=== PATIENT | male | born 1985 | race Caucasian/White ===

== ENCOUNTER 2020-05-12 14:00 | Emergency (ER) | payer OTHER ==
[~2020-05-12] VITALS: Ht 175.3 cm; Wt 81.8 kg
[2020-05-12 15:25] LABS: BASOPHILS % (AUTO) 0.6 % (0.0-2.0); EOSINOPHILS % (AUTO) 1.2 % (1.0-6.0); HEMATOCRIT 40.7 % (41-53); HEMOGLOBIN 13.8 g/dL (13.5-17.5); LYMPHOCYTES # (AUTO) 1.2 K/uL (1.0-4.8); LYMPHOCYTES % (AUTO) 18.8 % (22.0-44.0); MEAN CORPUSCULAR HGB CONC 33.9 G/dL (31.0-37.0); MEAN CORPUSCULAR VOLUME 85 fL (80-100); MONOCYTES # (AUTO) 0.5 K/uL (0.1-1.0); MONOCYTES % (AUTO) 7.7 % (2.0-9.0); NEUTROPHILS # (AUTO) 4.8 K/uL (1.8-7.7); NEUTROPHILS % (AUTO) 71.7 % (40.0-70.0); PLATELET COUNT (AUTO) 334 K/uL (150-450); RED BLOOD CELL COUNT(AUTO) 4.77 MIL/uL (4.50-5.90)
[2020-05-12 15:37] LABS: ANION GAP 9 mmol/L (8-16); CARBON DIOXIDE 27 mmol/L (22-29); CHLORIDE 105 mmol/L (98-107); CREATININE 0.81 mg/dL (0.60-1.30); GLOMERULAR FILTR. RATE CALC > 60 mL/min (>60); GLUCOSE,RANDOM 86 mg/dL (70-110); POTASSIUM 3.9 mmol/L (3.5-5.1); SODIUM SERUM 141 mmol/L (136-145); UREA NITROGEN, BLOOD 12 mg/dL (7-18)
[2020-05-12 15:44] LABS: LACTIC ACID 1.4 mmol/L (0.4-2.0)
[2020-05-12 16:04] LABS: ALANINE AMINOTRANSFERASE 21 U/L (12-78); ALBUMIN 3.5 g/dL (3.4-5.0); ALKALINE PHOSPHATASE 56 U/L (46-116); ASPARTATE AMINOTRANSFERASE 10 U/L (15-37); BILIRUBIN,TOTAL 0.3 mg/dL (0.1-1.0); CREATINE KINASE, TOTAL ONLY 81 U/L (39-308); TOTAL PROTEIN, SERUM 6.8 g/dL (6.4-8.2)
[2020-05-12 17:35] VITALS: BP 122/81
== END 2020-05-12 18:14 | disposition home or self-care (01) ==
LOC: EMS 14:03
DX: R56.9 Unspecified convulsions (principal)
CPT/HCPCS: 36415; 70450; 80053; 82550; 82962; 83605; 85025; 99284; G0480

== ENCOUNTER 2024-03-31 02:30 | Inpatient (IN) | payer OTHER ==
[~2024-03-31] VITALS: Ht 179.1 cm; Wt 75.0 kg
[2024-03-31] MEDS: SODIUM CHLORIDE 0.9% 1,000 ML IV ONE (04:24)
[2024-03-31] MEDS: ChlordiazePOXIDE HCL 10 MG CAPSULE PO ONE (04:24)
[2024-03-31 04:36] LABS: BASOPHILS % (AUTO) 0.7 % (0.0-2.0); EOSINOPHILS % (AUTO) 1.4 % (1.0-6.0); HEMATOCRIT 40.3 % (41-53); HEMOGLOBIN 13.4 g/dL (13.5-17.5); LYMPHOCYTES # (AUTO) 1.4 K/uL (1.0-4.8); LYMPHOCYTES % (AUTO) 21.7 % (22.0-44.0); MEAN CORPUSCULAR HEMOGLOBIN 28.4 pg (26.0-34.0); MEAN CORPUSCULAR HGB CONC 33.3 G/dL (31.0-37.0); MEAN CORPUSCULAR VOLUME 85 fL (80-100); MONOCYTES # (AUTO) 0.8 K/uL (0.1-1.0); MONOCYTES % (AUTO) 11.9 % (2.0-9.0); NEUTROPHILS # (AUTO) 4.2 K/uL (1.8-7.7); NEUTROPHILS % (AUTO) 64.3 % (40.0-70.0); PLATELET COUNT (AUTO) 402 K/uL (150-450); RED BLOOD CELL COUNT(AUTO) 4.73 MIL/uL (4.50-5.90); RED CELL DISTRIBUTION WIDTH 14.2 % (11.5-14.5); WHITE BLOOD COUNT (AUTO) 6.5 K/uL (4.5-11.0)
[2024-03-31 04:44] LABS: ANION GAP 6 mmol/L (8-16); CALCIUM, TOTAL 8.8 mg/dL (8.8-10.5); CARBON DIOXIDE 29 mmol/L (22-29); CHLORIDE 106 mmol/L (98-107); CREATININE 1.07 mg/dL (0.60-1.30); GLOMERULAR FILTR. RATE CALC > 60 mL/min (>60); GLUCOSE,RANDOM 110 mg/dL (70-110); POTASSIUM 4.3 mmol/L (3.5-5.1); SODIUM SERUM 141 mmol/L (136-145); UREA NITROGEN, BLOOD 16 mg/dL (7-18)
[2024-03-31 04:58] LABS: ALCOHOL, BLOOD (SERUM) < 3 mg/dL (0-10)
[2024-03-31 08:44] LABS: APPEARANCE,URINE CLEAR (CLEAR); BILIRUBIN,URINE NEGATIVE (NEGATIVE); COLOR,URINE LIGHT YELLOW (YELLOW); GLUCOSE, URINE (UA) NEGATIVE (NEGATIVE); KETONES,URINE NEGATIVE (NEGATIVE); LEUKOCYTE ESTERASE ,URINE NEGATIVE (NEGATIVE); NITRATE,URINE NEGATIVE (NEGATIVE); OCCULT BLOOD,URINE NEGATIVE (NEGATIVE); PROTEIN,URINE NEGATIVE (NEGATIVE); SPECIFIC GRAVITIY, URINE 1.021 (1.003-1.030); UROBILINOGEN,URINE <=1.0 mg/dL (<=1.0)
[2024-03-31 08:51] LABS: ALCOHOL, URINE DRUG SCREEN NEGATIVE (NEGATIVE); AMPHET/METH SCREEN,URINE POSITIVE (NEGATIVE); BARBITURATE SCREEN, URINE NEGATIVE (NEGATIVE); BENZODIAZEPINES SCREEN,URINE NEGATIVE (NEGATIVE); CANNABINOID SCREEN,URINE NEGATIVE (NEGATIVE); COCAINE SCREEN,URINE NEGATIVE (NEGATIVE); METHADONE SCREEN, URINE NEGATIVE (NEGATIVE); OPIATE SCREEN,URINE NEGATIVE (NEGATIVE); PHENCYCLIDINE SCREEN,URINE NEGATIVE (NEGATIVE)
[2024-03-31 10:38] VITALS: BP 111/66; PULSE 89; RESP 18; TEMP 98; O2SAT 100
[2024-03-31] MEDS: MAGNESIUM SULFATE 2 GM, MVI, ADULT NO.1 WITH VIT K 10 ML, THIAMINE 100 MG, FOLIC ACID 1... IV ONE (14:25)
[2024-03-31 15:29] VITALS: BP 121/70; PULSE 83; RESP 18; TEMP 98; O2SAT 96
[2024-03-31 19:32] VITALS: BP 123/71; PULSE 94; RESP 18; TEMP 98.2; O2SAT 99
[2024-04-01 04:45] VITALS: BP 119/71; PULSE 84; RESP 18; TEMP 97.7; O2SAT 100
[2024-04-01 07:59] VITALS: BP 102/82; PULSE 116; RESP 18; TEMP 98.3; O2SAT 100
[2024-04-01] MEDS: ChlordiazePOXIDE HCL 10 MG CAPSULE PO PRN (08:35)
[2024-04-01 16:59] VITALS: BP 97/57; PULSE 90; RESP 18; TEMP 98.3; O2SAT 98
== END 2024-04-01 22:30 | disposition left against medical advice (07) | DRG 894 ==
LOC: EMS 02:32 → EDH 09:27 → 6S 10:02
PROVIDERS: ADMIT Internal Medicine; ATTEND Internal Medicine
DX: F10.139 Alcohol abuse with withdrawal, unspecified (principal); F15.10 Other stimulant abuse, uncomplicated; Z53.21 Procedure and treatment not carried out due to patient leaving prior to being seen by health care provider
CPT/HCPCS: 80048; 80307; 81003; 85025; 96360; 99285; G0480; J3411; J3475; J3490; J7030; 36415-L1; 36415-TC

== ENCOUNTER 2024-04-02 00:34 | Inpatient (IN) | payer OTHER ==
[2024-04-02] MEDS: LORazepam 2 MG TABLET PO ONE (02:36)
[2024-04-02 02:40] LABS: HEMOGLOBIN 14.1 g/dL (13.5-17.5)
[2024-04-02 02:44] LABS: BASOPHILS % (AUTO) 1.1 % (0.0-2.0); EOSINOPHILS % (AUTO) 1.2 % (1.0-6.0); LYMPHOCYTES % (AUTO) 27.9 % (22.0-44.0); MEAN CORPUSCULAR HEMOGLOBIN 28.5 pg (26.0-34.0); MEAN CORPUSCULAR HGB CONC 32.9 G/dL (31.0-37.0); MEAN CORPUSCULAR VOLUME 87 fL (80-100); MONOCYTES # (AUTO) 0.9 K/uL (0.1-1.0); NEUTROPHILS # (AUTO) 4.2 K/uL (1.8-7.7); NEUTROPHILS % (AUTO) 57.8 % (40.0-70.0); PLATELET COUNT (AUTO) 405 K/uL (150-450); RED BLOOD CELL COUNT(AUTO) 4.97 MIL/uL (4.50-5.90); RED CELL DISTRIBUTION WIDTH 13.9 % (11.5-14.5); WHITE BLOOD COUNT (AUTO) 7.2 K/uL (4.5-11.0)
[2024-04-02 02:51] LABS: ANION GAP 6 mmol/L (8-16); CALCIUM, TOTAL 9.4 mg/dL (8.8-10.5); CARBON DIOXIDE 31 mmol/L (22-29); CHLORIDE 102 mmol/L (98-107); CREATININE 0.98 mg/dL (0.60-1.30); GLOMERULAR FILTR. RATE CALC > 60 mL/min (>60); GLUCOSE,RANDOM 72 mg/dL (70-110); POTASSIUM 4.2 mmol/L (3.5-5.1); SODIUM SERUM 139 mmol/L (136-145); UREA NITROGEN, BLOOD 17 mg/dL (7-18)
[2024-04-02 07:39] VITALS: BP 102/58; PULSE 72; RESP 18; TEMP 97.9; O2SAT 100
[2024-04-02] MEDS ORDERED: DICYCLOMINE HCL 10 MG CAPSULE PO PRN (11:15)
[2024-04-02] MEDS ORDERED: LOPERAMIDE HCL 2 MG CAPSULE PO PRN (11:15)
[2024-04-02] MEDS ORDERED: SODIUM CHLORIDE 0.9% 0 ML ONE (12:57)
[2024-04-02] MEDS: MAGNESIUM SULFATE 2 GM, MVI, ADULT NO.1 WITH VIT K 10 ML, THIAMINE 100 MG, FOLIC ACID 1... IV ONE (13:02)
[2024-04-02 20:13] VITALS: BP 117/56; PULSE 98; RESP 18; TEMP 97.8; O2SAT 98
[2024-04-02] MEDS: TEMAZEPAM 15 MG CAPSULE PO SCH (21:04)
[2024-04-03 05:05] VITALS: BP 98/55; PULSE 74; RESP 18; TEMP 98.2; O2SAT 100
[2024-04-03 07:55] VITALS: BP 96/54; PULSE 76; RESP 20; TEMP 97.9; O2SAT 100
[2024-04-03] MEDS: METOCLOPRAMIDE HCL 5 MG/ML 2 ML VIAL IVP PRN (09:20)
[2024-04-03] MEDS ORDERED: TEMA15CA PO (11:17)
[2024-04-03] MEDS ORDERED: HYDR-4527 PO (11:17)
[2024-04-03] MEDS: HydrOXYzine HCL 25 MG TABLET PO PRN (11:29)
== END 2024-04-03 16:15 | DRG 897 ==
LOC: EMS 00:34 → EDH 02:43 → 6N 07:06
PROVIDERS: ADMIT Internal Medicine; ATTEND Internal Medicine
DX: F10.139 Alcohol abuse with withdrawal, unspecified (principal); F15.10 Other stimulant abuse, uncomplicated; F41.9 Anxiety disorder, unspecified
CPT/HCPCS: 80048; 85025; 99285; J2765; J3411; J3475; J3490; J7030

== ENCOUNTER 2024-04-06 16:45 | Inpatient (IN) | payer OTHER ==
[~2024-04-06] VITALS: Ht 180.3 cm; Wt 73.9 kg
[~2024-04-06 16:45] MED LIST: HYDR-4527 PO; TEMA15CA PO
[2024-04-06] MEDS ORDERED: MAGNESIUM HYDROXIDE SUSPENSION 30 ML UDCUP PO PRN (17:15)
[2024-04-06] MEDS ORDERED: LORazepam 2 MG/ML VIAL IVP ONE (17:15)
[2024-04-06] MEDS ORDERED: LevETIRAcetam 1,000 MG in DEXTROSE 5%-WATER 100 ML IV ONE (17:15)
[2024-04-06] MEDS ORDERED: ACETAMINOPHEN 325 MG TABLET PO PRN (17:15)
[2024-04-06] MEDS ORDERED: ONDANSETRON HCL 4 MG/2 ML VIAL IVP PRN (17:15)
[2024-04-06 17:34] LABS: BASOPHILS % (AUTO) 0.9 % (0.0-2.0); EOSINOPHILS % (AUTO) 0.5 % (1.0-6.0); HEMATOCRIT 39.6 % (41-53); HEMOGLOBIN 12.7 g/dL (13.5-17.5); LYMPHOCYTES # (AUTO) 1.5 K/uL (1.0-4.8); LYMPHOCYTES % (AUTO) 19.5 % (22.0-44.0); MEAN CORPUSCULAR HEMOGLOBIN 27.7 pg (26.0-34.0); MEAN CORPUSCULAR VOLUME 87 fL (80-100); MONOCYTES # (AUTO) 0.7 K/uL (0.1-1.0); NEUTROPHILS # (AUTO) 5.2 K/uL (1.8-7.7); NEUTROPHILS % (AUTO) 69.1 % (40.0-70.0); PLATELET COUNT (AUTO) 352 K/uL (150-450); RED BLOOD CELL COUNT(AUTO) 4.58 MIL/uL (4.50-5.90); WHITE BLOOD COUNT (AUTO) 7.5 K/uL (4.5-11.0)
[2024-04-06 17:35] LABS: GLUCOMETER DEV NAME(LOC) ER.7; GLUCOSE,POINT OF CARE 81 MG/DL (70-110)
[2024-04-06 17:43] LABS: ANION GAP 7 mmol/L (8-16); CALCIUM, TOTAL 8.6 mg/dL (8.8-10.5); CARBON DIOXIDE 28 mmol/L (22-29); CHLORIDE 105 mmol/L (98-107); CREATININE 0.78 mg/dL (0.60-1.30); GLOMERULAR FILTR. RATE CALC > 60 mL/min (>60); GLUCOSE,RANDOM 92 mg/dL (70-110); POTASSIUM 4.2 mmol/L (3.5-5.1); SODIUM SERUM 140 mmol/L (136-145); UREA NITROGEN, BLOOD 10 mg/dL (7-18)
[2024-04-06 17:56] LABS: ALANINE AMINOTRANSFERASE 46 U/L (12-78); ALBUMIN 3.2 g/dL (3.4-5.0); ALKALINE PHOSPHATASE 55 U/L (46-116); ASPARTATE AMINOTRANSFERASE 100 U/L (15-37); BILIRUBIN,TOTAL 0.2 mg/dL (0.1-1.0); PHOSPHORUS 2.9 mg/dL (2.5-4.9); TOTAL PROTEIN, SERUM 6.7 g/dL (6.4-8.2)
[2024-04-06 17:57] LABS: AMMONIA 16 umol/L (11-32); CREATINE KINASE, TOTAL ONLY 6699 U/L (39-308); TROPONIN I-HIGH SENSITIVITY 15 ng/L (<76)
[2024-04-06 18:16] LABS: B-TYPE NATRIURETIC PEPTIDE 11 pg/mL (0-100)
[2024-04-06 18:24] LABS: ALCOHOL, BLOOD (SERUM) < 3 mg/dL (0-10)
[2024-04-06] MEDS: SODIUM CHLORIDE 0.9% 1,000 ML IV SCH (18:27)
[2024-04-06 20:13] LABS: APPEARANCE,URINE CLEAR (CLEAR); BILIRUBIN,URINE NEGATIVE (NEGATIVE); COLOR,URINE COLORLESS (YELLOW); GLUCOSE, URINE (UA) NEGATIVE (NEGATIVE); KETONES,URINE NEGATIVE (NEGATIVE); LEUKOCYTE ESTERASE ,URINE NEGATIVE (NEGATIVE); NITRATE,URINE NEGATIVE (NEGATIVE); OCCULT BLOOD,URINE NEGATIVE (NEGATIVE); PROTEIN,URINE NEGATIVE (NEGATIVE); SPECIFIC GRAVITIY, URINE 1.011 (1.003-1.030); UROBILINOGEN,URINE <=1.0 mg/dL (<=1.0)
[2024-04-06 20:53] LABS: ALCOHOL, URINE DRUG SCREEN NEGATIVE (NEGATIVE); AMPHET/METH SCREEN,URINE NEGATIVE (NEGATIVE); BARBITURATE SCREEN, URINE NEGATIVE (NEGATIVE); BENZODIAZEPINES SCREEN,URINE NEGATIVE (NEGATIVE); CANNABINOID SCREEN,URINE NEGATIVE (NEGATIVE); COCAINE SCREEN,URINE NEGATIVE (NEGATIVE); METHADONE SCREEN, URINE NEGATIVE (NEGATIVE); OPIATE SCREEN,URINE NEGATIVE (NEGATIVE); PHENCYCLIDINE SCREEN,URINE NEGATIVE (NEGATIVE)
[2024-04-07 02:27] VITALS: BP 108/70; PULSE 73; RESP 18; TEMP 98.1; O2SAT 100
[2024-04-07 05:00] VITALS: BP 101/45; PULSE 83; RESP 18; TEMP 98.5; O2SAT 99
[2024-04-07] MEDS: PANTOPRAZOLE SODIUM 40 MG/VIAL IVP SCH (08:34)
[2024-04-07 11:14] VITALS: BP 104/59; PULSE 80; RESP 16; TEMP 98; O2SAT 100
[2024-04-07] MEDS: SODIUM CHLORIDE 0.9% 1,000 ML IV ONE (12:36)
[2024-04-07 15:37] VITALS: BP 99/46; PULSE 85; RESP 18; TEMP 97.7; O2SAT 99
[2024-04-07] MEDS: LORazepam 2 MG/ML VIAL IVP PRN (15:49)
[2024-04-07 20:13] VITALS: BP 106/62; PULSE 82; RESP 17; TEMP 98.4; O2SAT 96
[2024-04-08 00:56] VITALS: BP 100/60; PULSE 76; RESP 17; TEMP 98.2; O2SAT 97
[2024-04-08 05:42] VITALS: BP 89/60; PULSE 70; RESP 17; TEMP 98.1; O2SAT 99
[2024-04-08 07:42] VITALS: BP 106/69; PULSE 74; RESP 18; TEMP 98.6; O2SAT 98
[2024-04-08 16:00] VITALS: BP 113/77; PULSE 84; RESP 18; TEMP 98.8; O2SAT 100
[2024-04-08 20:17] VITALS: BP 119/71; PULSE 88; RESP 20; TEMP 98.3; O2SAT 98
[2024-04-09 00:50] VITALS: BP 93/50; PULSE 69; RESP 18; TEMP 97.6; O2SAT 98
[2024-04-09 04:37] VITALS: BP 96/55; PULSE 67; RESP 18; TEMP 98.1; O2SAT 98
[2024-04-09 07:26] LABS: BASOPHILS % (AUTO) 0.7 % (0.0-2.0); EOSINOPHILS % (AUTO) 1.2 % (1.0-6.0); HEMATOCRIT 40.9 % (41-53); HEMOGLOBIN 13.5 g/dL (13.5-17.5); LYMPHOCYTES # (AUTO) 1.9 K/uL (1.0-4.8); LYMPHOCYTES % (AUTO) 28.9 % (22.0-44.0); MEAN CORPUSCULAR HEMOGLOBIN 28.5 pg (26.0-34.0); MEAN CORPUSCULAR HGB CONC 33.1 G/dL (31.0-37.0); MEAN CORPUSCULAR VOLUME 86 fL (80-100); MONOCYTES # (AUTO) 0.7 K/uL (0.1-1.0); MONOCYTES % (AUTO) 10.3 % (2.0-9.0); NEUTROPHILS # (AUTO) 3.9 K/uL (1.8-7.7); NEUTROPHILS % (AUTO) 58.9 % (40.0-70.0); PLATELET COUNT (AUTO) 346 K/uL (150-450); RED BLOOD CELL COUNT(AUTO) 4.75 MIL/uL (4.50-5.90); WHITE BLOOD COUNT (AUTO) 6.6 K/uL (4.5-11.0)
[2024-04-09 07:44] LABS: ANION GAP 4 mmol/L (8-16); CALCIUM, TOTAL 8.7 mg/dL (8.8-10.5); CARBON DIOXIDE 31 mmol/L (22-29); CHLORIDE 106 mmol/L (98-107); CREATININE 0.78 mg/dL (0.60-1.30); GLOMERULAR FILTR. RATE CALC > 60 mL/min (>60); GLUCOSE,RANDOM 87 mg/dL (70-110); POTASSIUM 4.3 mmol/L (3.5-5.1); SODIUM SERUM 141 mmol/L (136-145); UREA NITROGEN, BLOOD 10 mg/dL (7-18)
[2024-04-09 07:46] VITALS: BP 127/60; PULSE 62; RESP 18; TEMP 97.5; O2SAT 99
[2024-04-09 12:01] VITALS: BP 106/65; PULSE 96; RESP 18; TEMP 98.1; O2SAT 98
== END 2024-04-09 19:45 | DRG 917 ==
LOC: EMS 16:45 → EDH 17:06 → 5N 04-07 02:25
PROVIDERS: ADMIT Internal Medicine; ATTEND Internal Medicine
DX: T40.691A Poisoning by other narcotics, accidental (unintentional), initial encounter (principal); G92.8 Other toxic encephalopathy; F17.210 Nicotine dependence, cigarettes, uncomplicated; R55 Syncope and collapse; F11.10 Opioid abuse, uncomplicated; Y92.89 Other specified places as the place of occurrence of the external cause
CPT/HCPCS: 70450; 71045; 72125; 80048; 80076; 80307; 81003; 82140; 82550; 82962; 83735; 83880; 84100; 84484; 85025; 87081; 93005; 99285; G0378; G0480; J0712; J2060; J2470; J7030; J7060; 36415-L1; 36415-TC